=== PATIENT | male | born 1960 | race Caucasian/White ===

== ENCOUNTER 2018-06-17 11:22 | Emergency (ER) | payer OTHER ==
[~2018-06-17] VITALS: Ht 172.7 cm; Wt 59.0 kg
--- NOTE | 2018-06-17 11:45 | NUR ---
PT BIB [facility] NOTED IN TRIAGE NOTE. PT REPORTS NOT TAKING HIS CLONAZEPAM DUE TO IT MAKING HIM DIZZY. PT DENIES SI. PT MOVED FROM RME 8 TO ROOM 25. REPORT TO GABE STEWART. Addendum: 06/17/18 at 1203 by ALEGLISE PT RECEIVED 100 MCG OF FENTANYL VIA [facility] [employer].
[2018-06-17] MEDS ORDERED: ALPR-475 PO (11:59)
[2018-06-17] MEDS ORDERED: CLON2TAB9 PO (11:59)
[2018-06-17 12:59] LABS: BASOPHILS # (AUTO) 0.01 x10^3/uL (0-0.1); BASOPHILS % (AUTO) 0 % (0-1); EOSINOPHILS # (AUTO) 0.02 x10^3/uL (0-0.4); EOSINOPHILS % (AUTO) 0 % (1-7); LYMPHOCYTES # (AUTO) 0.99 x10^3/uL (1-3.4); LYMPHOCYTES % (AUTO) 13 % (22-44); MD NO; MEAN CORPUSCULAR HEMOGLOBIN 32.7 pg (27.5-34.5); MEAN CORPUSCULAR HGB CONC 34.4 g/dL (33.2-36.2); MEAN CORPUSCULAR VOLUME 95.3 fL (81-97); MONOCYTES # (AUTO) 0.54 x10^3/uL (0.2-0.8); MONOCYTES % (AUTO) 7 % (2-9); NEUTROPHILS # (AUTO) 6.24 x10^3/uL (1.8-6.8); NEUTROPHILS % (AUTO) 80 % (42-75); PLATELET COUNT 225 x10^3/uL (130-400); RED BLOOD COUNT 4.53 x10^6/uL (4.38-5.82); RED CELL DISTRIBUTION WIDTH 12.6 % (9.4-14.8)
[2018-06-17] MEDS ORDERED: SODIUM CHLORIDE FLUSH 10ML SYR IVF ONE (13:00)
[2018-06-17] MEDS ORDERED: CARISOPRODOL 350 MG TABLET PO ONE (13:00)
[2018-06-17] MEDS ORDERED: KETOROLAC 30 MG/1 ML IVPush ONE (13:00)
[2018-06-17] MEDS ORDERED: MORPHINE SULFATE 4 MG/ML, 1ML IVPush PRN (13:00)
[2018-06-17] MEDS ORDERED: PLEASE ENTER ALLERGIES MC SCH (13:00)
[2018-06-17 13:07] LABS: ANION GAP 8 mmol/L (5-15); CALCIUM 9.2 mg/dL (8.5-10.1); CHLORIDE 105 mmol/L (98-107)
[2018-06-17] MEDS ORDERED: KETOROLAC 30 MG/1 ML ONE (13:49)
[2018-06-17] MEDS ORDERED: MORPHINE SULFATE 4 MG/ML, 1ML ONE (13:49)
[2018-06-17 14:58] VITALS: BP 127/71
== END 2018-06-17 15:02 | disposition home or self-care (01) ==
LOC: ED 14:03
DX: S39.012A Strain of muscle, fascia and tendon of lower back, initial encounter (principal); X58.XXXA Exposure to other specified factors, initial encounter; Y93.H1 Activity, digging, shoveling and raking; Y92.89 Other specified places as the place of occurrence of the external cause; Y99.8 Other external cause status
CPT/HCPCS: 36415; 72110; 80048; 82040; 83605; 85025; 93005; 96374; 96375; 99284; J1885; J7512

== ENCOUNTER 2018-12-23 14:23 | Outpatient (CLI) | payer OTHER ==
[~2018-12-23 14:23] MED LIST: ALPR-475 PO; CLON2TAB9 PO
== END 2018-12-23 23:59 | disposition home or self-care (01) ==
LOC: CFH 14:23
PROVIDERS: ATTEND Family Medicine
DX: R10.31 Right lower quadrant pain (principal)
CPT/HCPCS: 74176